=== PATIENT | male | born 1985 | race Caucasian/White ===

== ENCOUNTER 2017-02-27 16:52 | Emergency (ER) | payer SELFPAY ==
[2017-02-27] MEDS ORDERED: Amoxicillin/Clavulanate K 875-125 MG Tab ONE (17:10)
[2017-02-27 17:17] VITALS: BP 136/87
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
--- NOTE | 2017-02-28 08:31 | CR ---
DATE OF SERVICE: 02/27/17 CLINICAL DATA: Finger Injury RIGHT HAND: There is an impacted fracture through the head of the 4th metacarpal. No other acute abnormalities. [id number] [facility]
== END 2017-02-27 18:36 | disposition home or self-care (01) ==
LOC: LB.ED 16:52
DX: S62.394A Other fracture of fourth metacarpal bone, right hand, initial encounter for closed fracture (principal); W22.01XA Walked into wall, initial encounter; Y92.009 Unspecified place in unspecified non-institutional (private) residence as the place of occurrence of the external cause
CPT/HCPCS: 29125; 36415; 73120; 85025; 99283; A9270